=== PATIENT | female | born 1995 | race Caucasian/White ===

== ENCOUNTER 2020-12-17 00:05 | Day surgery (SDC) | payer OTHER, SELFPAY ==
[2020-12-10 14:06] VITALS: BMI 21.3
[2020-12-17] VITALS (8 sets, daily range): BP systolic 106–139; BP diastolic 57–82; PULSE 69–108; RESP 10–20; TEMP 36.4–36.7; O2SAT 100; BMI 21.8
--- NOTE | 2020-12-17 06:49 | WPDANESEPPF ---
Anes - Initial Pre Proc Eval Procedure: Operation Date: 12/17/20 07:30 Proposed Procedures p Bilateral Breast Augmentation - Pacheco Curtis MD Date/Time: 12/17/20 06:49 Surgeon: Pacheco Curtis MD Pre Op Diagnosis: micromastia Patient Data Age: 25 Gender: F Height: 1.68 m Weight: 61.3 kg Allergies Allergy/AdvReac Type Severity Reaction Status Date / Time shellfish derived Allergy Unknown unknown Verified 12/17/20 06:17 Home Medications Medication Instructions Recorded Confirmed Type drospirenone 3 mg-ethinyl 1 tablet PO DAILY 08/05/20 12/17/20 History estradiol 0.03 mg tablet nitrofurantoin 50 mg capsule 100 mg PO DAILY 08/05/20 12/10/20 History valacyclovir 500 mg tablet 500 mg PO DAILY 08/05/20 12/10/20 History docusate sodium 100 mg capsule 100 mg PO DAILY #14 cap 11/25/20 12/10/20 Rx ondansetron HCl 4 mg tablet 4 mg PO Q8H #21 tablet 11/25/20 12/10/20 Rx carisoprodol 350 mg tablet 350 mg PO TID PRN #21 tablet 11/26/20 12/10/20 Rx oxycodone-acetaminophen 5 mg-325 1 tablet PO Q6H PRN #15 tablet 11/26/20 12/10/20 Rx mg tablet Patient hx anesthesia problems: other (motion sickness) Family hx anesthesia problems: none Results Review: All pre-operative results and documents have been reviewed as part of the pre-operative evaluation. [facility] Past Medical History Medical History Anxiety HSV-1 infection Social History Social History Smoking status: Never smoker Alcohol intake: current Drinks per week: 2 Substance use: never Substance use type: does not use Living arrangements: with family Spiritual care concerns: No Anes - Eval Final PreProcedure Day of Procedure 12/17/20 06:49 Patient weight: normal Heart: regular rate and rhythm Lungs: clear to auscultation Airway: Mallampati scale class II Neurological: alert and oriented ASA classification: II Emergent: no Anesthetic plan: proceed Anesthesia type and monitoring: general LMA and standard monitoring Results Review: All pre-operative results and documents have been reviewed as part of the pre-operative evaluation. Informed Consent: The patient's anesthetic plan and its attendant risks and benefits were discussed with the patient/family/POA. Questions were solicited and answers provided to the satisfaction of the patient/family/POA.
[2020-12-17] MEDS: LACTATED RINGERS 1,000 ML 30 ML IV CONT ×2 (06:55→08:24)
--- NOTE | 2020-12-17 07:15 | WPDHPUPDATE1 ---
History and Physical Update Update Date/Time: 12/17/20 07:15 History and Physical has been reviewed, including an updated exam of the patient. There are NO changes in the patient's condition. Risks, benefits, and alternatives have been discussed and questions answered. Patient agrees to proceed with procedure.
--- NOTE | 2020-12-17 07:15 | W.PM.PROC2 ---
Procedure Note - Detailed Date of Procedure 12/17/20 Pre-op Diagnosis micromastia Post-op Diagnosis same Procedure Performed Bilateral Augmentation Mammaplasty Surgeon Pacheco Curtis MD Anesthesia general Findings Bilateral Dual Plane 1 Riki Ardon SoftTouch 295cc Right REF# [id number] SN [id number] Left REF# [id number] SN [id number] Description of Procedure She is here today for bilateral breast augmentation. Previously and again today the risks, benefits, alternatives were discussed in extensive detail. I wanted her to be very realistic about the risks involved as well as expectations. We discussed aftercare and what to monitor for. Made sure answered all of her questions to her satisfaction today and consent was obtained. Marked in the preoperative holding area with their verification. The patient was taken to the operating room placed supine on the operating table. Anesthesia was provided by anesthesiology. A surgical time-out was taken. We cleansed the skin and 1% lidocaine and 0.25% Marcaine with epinephrine was used anesthetize as a field block. She was prepped and draped in a standard sterile fashion. Tegaderm nipple Harper were placed. A 15 blade used to make an incision along the inframammary fold. Dissection was continued at 45 degree angle until the chest wall as identified. I incised the pectoralis major along its inferior border and completely released the inferior border leaving the medial border intact. I created a subpectoral pocket in the appropriate dimensions based on our preoperative planning for the implant. I then copiously irrigated with saline solution and verified a strict hemostasis. Next the use a triple antibiotic and Betadine containing solution to irrigate the pocket. I washed my gloves with the triple antibiotic and Betadine solution. We washed the implant immediately upon opening it with this solution and only opened it when we needed it. I used implant funnel and no-touch technique. The implant was introduced into the pocket using the funnel. Having verified positioning of the implant this was closed using 2-0 Vicryl followed by 3-0 Monocryl in a running subcuticular 4-0 Monocryl followed by tissue glue. Fluffs, Tim wrap, and surgical bra were placed. Patient was awoke and taken to PACU without difficulty. All instrument sponge counts were correct at the end of the case. Estimated Blood Loss 10 Drains No Packing No Pathology none sent Complications No immediate complications Condition stable Disposition PACU
[2020-12-17] MEDS: SCOPOLAMINE 1.5 MG PATCH TRANSDERM (07:20)
[2020-12-17] MEDS: ceFAZolin 2 GM/D5W 50 ML 2 GM/50 ML BAG IVPB (07:25)
[2020-12-17] MEDS: TRANEXAMIC ACID 1,000MG/ISO100 1,000 MG/100 ML BAG 200 MG IVPB (07:36)
[2020-12-17] MEDS: BUPIVACAINE HCL 0.25% PF 30 ML VIAL INFILTRATE (07:54)
[2020-12-17] MEDS: LIDO 1%/EPINEPHRINE 1:100,000 50 ML VIAL 30 ML INFILTRATE (07:55)
[2020-12-17] MEDS: fentaNYL CITRATE INJ (*CRX) 100 MCG/2 ML VIAL 25 MCG IV PUSH ×5 (08:39→09:10)
[2020-12-17] MEDS: diphenhydrAMINE HCl INJ 50 MG/ML VIAL 25 MG IV PUSH (09:23)
[2020-12-17] MEDS: oxyCODONE HCL (*CRX) 5 MG TAB IR PO (09:56)
== END 2020-12-17 10:29 | disposition home or self-care (01) ==
PROVIDERS: Visit Provider Surgery Plastic and Reconstructive Surgery
PROC: (CPT 19325; principal; 2020-12-17 07:30)
DX: Z41.1 Encounter for cosmetic surgery (principal); N64.82 Hypoplasia of breast
CPT/HCPCS: 19325; A9270; J0690; J1100; J1200; J1580; J2250; J2405; J2704; J3010; J7120